=== PATIENT | female | born 1990 | race Caucasian/White ===

== ENCOUNTER 2019-08-03 21:41 | Emergency (ER) | payer SELFPAY ==
[~2019-08-03] VITALS: Ht 165.1 cm; Wt 89.8 kg
--- NOTE | 2019-08-03 21:48 | NUR ---
PT AAOX4. AMBULATORY. 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 [id number] AKUA: 09/13 FOR C SECTION. PLACED IN GOWN, ON MONITOR, AND PULSE OX. VSS. NO ACUTE DISTRESS NOTED. AWAITING MD FOR EVAL.
[2019-08-03 21:50] VITALS: BP 114/68
--- NOTE | 2019-08-03 22:21 | NUR ---
Reba rodriguez in ED - 08/03/19 at 2222 by ARMANDO Patient eloped from [facility]EE [facility]OTT notified.
--- NOTE | 2019-08-03 22:22 | NUR ---
PT NOT IN ROOM FOR MD JONES.
--- NOTE | 2019-08-03 22:22 | NUR ---
PT NOT IN ROOM FOR MD JONES. NOTIFIED
== END 2019-08-03 22:23 | disposition home or self-care (01) ==
LOC: ER 21:43
DX: Z53.21 Procedure and treatment not carried out due to patient leaving prior to being seen by health care provider (principal)